=== PATIENT | male | born 1980 | race Caucasian/White ===

== ENCOUNTER 2021-02-10 10:52 | Outpatient (CLI) | payer OTHER, SELFPAY ==
[2021-02-10 11:52] VITALS: BP 131/88; PULSE 111; RESP 18; TEMP 37.4; O2SAT 92; BMI 30.7
[2021-02-10 11:58] VITALS: BP 118/68; PULSE 100; RESP 20; O2SAT 92
[2021-02-10 13:00] VITALS: BP 116/70; PULSE 104; RESP 16; TEMP 38.8; O2SAT 93
== END 2021-02-10 10:53 | disposition home or self-care (01) ==
LOC: OPS 10:56
PROVIDERS: PCP General Practice; Visit Provider Physician Assistant
DX: U07.1 COVID-19 (principal)
CPT/HCPCS: 96365

== ENCOUNTER 2021-02-14 12:31 | Outpatient (CLI) | payer OTHER, SELFPAY ==
[2021-02-14 13:04] LABS: D Dimer 2.89 ug/mIFEU (0-0.59)
== END 2021-02-14 12:32 | disposition home or self-care (01) ==
PROVIDERS: PCP General Practice; Visit Provider Family Medicine
DX: U07.1 COVID-19 (principal)
CPT/HCPCS: 85378

== ENCOUNTER 2021-02-14 16:41 | Emergency (ER) | payer OTHER, SELFPAY ==
[2021-02-14] VITALS (13 sets, daily range): BP systolic 122–135; BP diastolic 77–92; PULSE 86–111; RESP 22–37; TEMP 37.5; O2SAT 93–97; BMI 31.4
--- NOTE | 2021-02-14 17:06 | CTR_ITS ---
PROCEDURE INFORMATION: Exam: CTA Chest With Contrast Exam date and time: 02/14/2021 5:06 PM Age: 40 years old Clinical indication: Cough and fever and shortness of breath; Additional info: Covid, dyspnea TECHNIQUE: Imaging protocol: Computed tomographic angiography of the chest with contrast. 3D rendering (Not supervised by radiologist): MIP and/or 3D reconstructed images were created by the technologist. Total images: 489 Radiation optimization: All CT scans at this facility use at least one of these dose optimization techniques: automated exposure control; mA and/or kV adjustment per patient size (includes targeted exams where dose is matched to clinical indication); or iterative reconstruction. Contrast material: OMNI 350; Contrast volume: 95 ml; Contrast route: INTRAVENOUS (IV); COMPARISON: CR (CHEST, ) 02/14/2021 6:28 PM RADIATION DOSE METRICS: Total DLP (mGy-cm): 1104.89 FINDINGS: Pulmonary arteries: No visible evidence of pulmonary embolism/pulmonary arterial thrombus. Aorta: The thoracic aorta is nonaneurysmal. No visible intimal flap or dissection. Lungs: Bilateral, predominantly peripheral, patches of ground-glass interstitial lung disease opacification consistent with active interstitial pneumonitis. Early crazy paving consolidated alveolar airspace disease involvement. Overall constellation of findings would be consistent with Covid-19 pneumonitis/pneumonia. Pleural spaces: Unremarkable. No pneumothorax. No pleural effusion. Heart: Cardiac size within normal limits. No visible pericardial effusion. No visible coronary artery disease. Lymph nodes: Marginally prominent mediastinal and hilar lymph nodes most likely reactive in nature. Bones/joints: No visible active or acute osseous pathology. Soft tissues: Unremarkable. CT/CT angio chest PE protcl [id number] IMPRESSION: 1. No visible evidence of pulmonary embolism/pulmonary arterial thrombus. 2. Covid-19 pneumonitis/pneumonia. Radiation Dose CTDIVOL = (mGy): DLP = 1104.89 (mGy-cm)
--- NOTE | 2021-02-14 17:08 | W.ED.SOB ---
HPI - SOB/Dyspnea General: Chief Complaint: Shortness of Breath/Dyspnea Stated Complaint: MAYRA HOLLEY SENT OVER...POSS BLOOD CLOT IN LUNG Time Seen by Provider: 02/14/21 17:01 History of Present Illness: HPI Narrative: Patient has been ill for 12 days. Patient was diagnosed with COVID-19 last week and was infused with monoclonal antibodies on Wednesday of this week. Patient reports today he was seen at the [facility] and had blood work done. They called him this afternoon and told him he needed to go to the ER for further evaluation to rule out a pulmonary emboli. Patient is alert oriented reports some shortness of breath but no chest pain. Patient does have some mild tachycardia but is satting 96% on room air. MD elicited complaint: shortness of breath Review of Systems General: Reports: 10 or more systems reviewed and unremarkable except in HPI and below Resp: Reports: dyspnea Physical Exam Const: COMMON NORMALS: no acute distress and patient oriented x3 GENERAL APPEARANCE: cooperative HENMT: COMMON NORMALS: normocephalic and Normal external nose present HEAD & SCALP: normal to inspection and normocephalic NOSE: Normal external nose present MOUTH: Normal oral and palatal mucosa present Eye: GENERAL EYE: appearance normal, both eyes and all related structures Neck/C-Spine: COMMON NORMALS: full ROM Chest: COMMONS NORMALS: normal inspection of the chest Resp: COMMON NORMALS: normal respiratory effort and clear to auscultation bilaterally EFFORT & INSPECTION: Yes able to speak in complete sentences AUSCULTATION: clear to auscultation bilaterally Cardio: COMMON NORMALS: regular rhythm RATE: tachycardic RHYTHM: regular rhythm GI: COMMON NORMALS: non-tender Back/Pelvis: COMMON NORMALS: thoracic and lumbar spine normal to inspection Extremity: COMMON NORMALS: normal to inspection Neuro: COMMON NORMALS: patient oriented x3 and moves all extremities Psych: COMMON NORMALS: mental status grossly normal and cooperative Skin: COMMON NORMALS: no rashes or lesions noted GENERAL SKIN EXAM: no rashes or lesions noted Course Vital Signs: Vital signs: Vital Signs Temperature 99.5 F 02/14/21 17:04 Pulse Rate 86 02/14/21 22:00 Respiratory Rate 26 H 02/14/21 22:00 Blood Pressure 126/92 02/14/21 23:00 Pulse Oximetry 94 02/14/21 23:00 MDM - SOB/Dyspnea MDM Narrative: Medical decision making narrative: Patient comes in today for complaints of fatigue and shortness of breath. Patient is on day 12 of COVID-19 infection. Patient was seen at [facility] and was referred to the ER for further evaluation to rule out PE. Patient has some decreased breath sounds in the lung finley. Oxygen saturation on room air was 9495%. Skin was warm and dry. Differential diagnosis includes COVID-19 pneumonia, pulmonary embolism, pleural effusion. Chest x-ray showed some scattered patches of infiltrates throughout lung finley. D-dimer is 2.6. Remainder of labs suggested some mild dehydration. Patient was given 1 L of IV fluid. 6 mg of dexamethasone for shortness of breath and a dose of famotidine for some complaints of reflux. CTA of the chest indicated no pulmonary embolism. Reviewed exam with patient with suggestions to continue dexamethasone 6 mg daily for the next 4 days and azithromycin 500 daily for 2 days. Patient was recommended to follow-up with primary care in 1 week. Return to the ER for worsening shortness of breath or new concerns. Lab Data: Labs: Lab Results 02/14/21 02/14/21 02/14/21 Range/Units 17:40 17:40 17:40 WBC 7.1 (4.0-10.0) 10^3/ uL RBC 4.18 (4.1-5.3) 10^6/u L Hgb 12.6 (11.7-16.6) g/dL Hct 36.3 L (42.0-52.0) % MCV 86.8 (80-94) fl MCH 30.1 (28.0-34.0) pg MCHC 34.7 (30.0-36.0) g/dL RDW 12.5 (12.1-15.1) % Plt Count 352 (130-400) 10^3/c mm MPV 9.0 (7.4-10.4) fL Neut % (Auto) 72.8 % Lymph % (Auto) 12.3 % [place] % (Auto) 13.9 % Eos % (Auto) 0.3 % Baso % (Auto) 0.1 % Neut # (Auto) 5.17 (1.8-7.7) 10^3/u L Lymph # (Auto) 0.9 (0.8-4.8) 10^3/u L [place] # (Auto) 1.0 H (0.2-0.9) 10^3/u L Eos # (Auto) 0.0 (0.0-0.8) 10^3/u L Baso # (Auto) 0.0 (0.0-0.1) 10^3/u L Nucleated RBC % (a uto) 0 % Nucleated RBCs # 0.0 /100WBC PT 16.40 H (12.1-14.9) SECO NDS INR 1.29 H (0.8-1.2) APTT 42.2 H (23.9-36.7) SECO NDS D-Dimer 2.43 H (0-0.59) ug/mIFE U Sodium 134 L (136-145) mmol/L Potassium 3.4 L (3.5-5.1) mmol/L Chloride 94 L (98-107) mmol/L Carbon Dioxide 26 (22-29) mmol/L Anion Gap 17.4 (5-19) BUN 7 (6-20) mg/dL Creatinine 0.6 L (0.7-1.2) mg/dL GFR Calculation 147.8 H (90-130) mL/min Glucose 106 (65-115) mg/dL Calculated Osmolal ity 276 L (285-295) mOsm/k g Lactic Acid (0.5-2.2) mmol/L Calcium 8.2 L (8.5-10.5) mg/dL Total Bilirubin 0.6 (0.15-1.2) mg/dL AST 38 (0-40) U/L ALT 43 H (0-41) U/L Alkaline Phosphata se 73 (40-130) IU/L Total Protein 6.3 L (6.6-8.7) g/dL Albumin 3.3 L (3.5-5.2) g/dL Globulin 3.0 (1.3-4.6) g/dL 02/14/21 Range/Units 17:40 WBC (4.0-10.0) 10^3/ uL RBC (4.1-5.3) 10^6/u L Hgb (11.7-16.6) g/dL Hct (42.0-52.0) % MCV (80-94) fl MCH (28.0-34.0) pg MCHC (30.0-36.0) g/dL RDW (12.1-15.1) % Plt Count (130-400) 10^3/c mm MPV (7.4-10.4) fL Neut % (Auto) % Lymph % (Auto) % [place] % (Auto) % Eos % (Auto) % Baso % (Auto) % Neut # (Auto) (1.8-7.7) 10^3/u L Lymph # (Auto) (0.8-4.8) 10^3/u L [place] # (Auto) (0.2-0.9) 10^3/u L Eos # (Auto) (0.0-0.8) 10^3/u L Baso # (Auto) (0.0-0.1) 10^3/u L Nucleated RBC % (a uto) % Nucleated RBCs # /100WBC PT (12.1-14.9) SECO NDS INR (0.8-1.2) APTT (23.9-36.7) SECO NDS D-Dimer (0-0.59) ug/mIFE U Sodium (136-145) mmol/L Potassium (3.5-5.1) mmol/L Chloride (98-107) mmol/L Carbon Dioxide (22-29) mmol/L Anion Gap (5-19) BUN (6-20) mg/dL Creatinine (0.7-1.2) mg/dL GFR Calculation (90-130) mL/min Glucose (65-115) mg/dL Calculated Osmolal ity (285-295) mOsm/k g Lactic Acid 1.6 (0.5-2.2) mmol/L Calcium (8.5-10.5) mg/dL Total Bilirubin (0.15-1.2) mg/dL AST (0-40) U/L ALT (0-41) U/L Alkaline Phosphata se (40-130) IU/L Total Protein (6.6-8.7) g/dL Albumin (3.5-5.2) g/dL Globulin (1.3-4.6) g/dL Discharge Plan Discharge Patient Disposition: Home Clinical Impression: Pneumonia due to COVID-19 virus Condition: Stable Prescriptions: New dexamethasone 6 mg tablet 6 mg PO DAILY Qty: 4 RF: 0 azithromycin 500 mg tablet 500 mg PO DAILY 2 Days RF: 0 Discharge Orders: Discharge ED (Routine); Ordered 02/14/21 Ordered By: Donn Mcintosh Referrals: Dann Hernandez MD [Primary Care Provider] - Discharge Diet: Usual diet Discharge Activity: Increase activity as tolerated Patient Instructions: Viral Pneumonia (ED), Opioid Safety Activity Restrictions/Additional Instructions: Drink plenty of fluids. Take medications as directed. Use dexamethasone 6 mg daily for the next 4 days. Use azithromycin 500 mg daily for the next 2 days. COVID-19 is a virus and has limited use for up antibiotics. We have covered you with azithromycin which has anti-inflammatory effect along with antibacterial components. It was written to cover for any secondary bacterial infection that may have occurred along with your Covid 19 infection. Dexamethasone is anti-inflammatory which has been shown to help with respiratory shortness of breath during pneumonia. Use albuterol 2 puffs every 4 hours as needed for shortness of breath. If your shortness of breath becomes worse you may need to be started on oxygen. Have your oxygen status checked frequently with a pulse oximetry monitor. You can pick 1 of these up at [facility] or [facility] if you do not already have one at home. Return to the ER as needed. Follow-up with primary care in 1 week. 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
[2021-02-14] MEDS: sodium chloride 0.9% 1,000 ML 999 ML IV (17:30)
[2021-02-14 17:46] LABS: Basophils % 0.1 %; Eosinophils % 0.3 %; Hematocrit 36.3 % (42.0-52.0); Hemoglobin 12.6 g/dL (11.7-16.6); Lymphocytes # 0.9 10^3/uL (0.8-4.8); Lymphocytes % 12.3 %; Mean Corpuscular HGB Conc 34.7 g/dL (30.0-36.0); Mean Corpuscular Hemoglobin 30.1 pg (28.0-34.0); Mean Corpuscular Volume 86.8 fl (80-94); Monocytes % 13.9 %; Neutrophils # 5.17 10^3/uL (1.8-7.7); Neutrophils % 72.8 %; Nucleated Red Blood Cells % 0 %; Platelet Count 352 10^3/cmm (130-400); Red Blood Count 4.18 10^6/uL (4.1-5.3); Red Cell Distribution Width 12.5 % (12.1-15.1); White Blood Count 7.1 10^3/uL (4.0-10.0)
[2021-02-14 18:04] LABS: Lactic Sepsis W/Reflex 1.6 mmol/L (0.5-2.2)
--- NOTE | 2021-02-14 18:17 | XRR_ITS ---
PROCEDURE INFORMATION: Exam: XR Chest Exam date and time: 02/14/2021 6:17 PM Age: 40 years old Clinical indication: Cough and dyspnea; Patient HX: Covid + TECHNIQUE: Imaging protocol: XR of the chest. Views: 1 view. Total images: 1 COMPARISON: CR XR chest 2V* [id number] 02/14/2021 12:03 PM FINDINGS: Lungs: Bilateral, predominantly peripheral, patches of ground-glass interstitial lung disease opacification consistent with active interstitial pneumonitis. Overall constellation of findings would be consistent with Covid-19 pneumonitis. When compensation is made for change in technique no appreciable significant interval change since 12:06 p.m. same date. Pleural spaces: Unremarkable. No pleural effusion. No pneumothorax. Heart/Mediastinum: Unremarkable. No cardiomegaly. Bones/joints: Unremarkable. XR/XR chest 1V portable [id number] IMPRESSION: No significant interval change cardiopulmonary status.
[2021-02-14 18:18] LABS: Anion Gap 17.4 (5-19); Blood Urea Nitrogen 7 mg/dL (6-20); Carbon Dioxide 26 mmol/L (22-29); Chloride 94 mmol/L (98-107); Potassium 3.4 mmol/L (3.5-5.1); Sodium 134 mmol/L (136-145)
[2021-02-14 18:19] LABS: Alanine Aminotransferase 43 U/L (0-41); Albumin Level 3.3 g/dL (3.5-5.2); Alkaline Phosphatase 73 IU/L (40-130); Aspartate Amino Transferase 38 U/L (0-40); Calcium 8.2 mg/dL (8.5-10.5); Glomerular Filtration Rate 147.8 mL/min (90-130); Glucose 106 mg/dL (65-115); Osmolality Calculated 276 mOsm/kg (285-295); Total Bilirubin 0.6 mg/dL (0.15-1.2); Total Protein 6.3 g/dL (6.6-8.7)
[2021-02-14 18:22] LABS: INR 1.29 (0.8-1.2); Slide Review Slide Review Perform
[2021-02-14 18:25] LABS: D Dimer 2.43 ug/mIFEU (0-0.59)
[2021-02-14 18:36] LABS: Partial Thromboplastin Time 42.2 SECONDS (23.9-36.7)
[2021-02-14] MEDS: famotidine 20 mg/2 mL INJ 40 MG IVP (19:03)
[2021-02-14] MEDS: dexamethasone 10 mg/mL INJ 6 MG IVP (19:04)
[2021-02-14] MEDS: iohexol 350 mg/mL 100 mL Btl IV ×2 (22:34)
== END 2021-02-14 23:39 | disposition home or self-care (01) ==
PROVIDERS: Emergency Provider Nurse Practitioner Family; PCP General Practice
DX: U07.1 COVID-19 (principal); J12.82 Pneumonia due to coronavirus disease 2019
CPT/HCPCS: 71045; 71275; 80053; 83605; 85025; 85378; 85610; 85730; 96361; 96374; 96375; 99284; J1100; J3490; J7030; Q9967

== ENCOUNTER → 2021-11-19 09:59 | Outpatient (BNVA) | payer OTHER, SELFPAY | PROVIDERS: Visit Provider Family Medicine | DX: N52.9 Male erectile dysfunction, unspecified (principal); R39.12 Poor urinary stream; K21.9 Gastro-esophageal reflux disease without esophagitis; Z76.89 Persons encountering health services in other specified circumstances; M79.671 Pain in right foot; G47.00 Insomnia, unspecified | CPT/HCPCS: 73620; 80053; 80061; 81000; 84153; 84443; 85025; 87086 ==

== ENCOUNTER 2021-11-20 13:23 | Outpatient (CLI) | payer OTHER, SELFPAY | END 2021-11-20 13:24 | disposition home or self-care (01) | PROVIDERS: PCP Family Medicine; Visit Provider Family Medicine | DX: K52.9 Noninfective gastroenteritis and colitis, unspecified (principal); K21.9 Gastro-esophageal reflux disease without esophagitis; M79.671 Pain in right foot; N52.9 Male erectile dysfunction, unspecified; R39.12 Poor urinary stream; Z76.89 Persons encountering health services in other specified circumstances | CPT/HCPCS: 87491; 87493; 87506; 87591 ==

== ENCOUNTER → 2022-12-02 11:04 | Outpatient (BNVA) | payer OTHER, SELFPAY | PROVIDERS: PCP Family Medicine; Visit Provider Family Medicine | DX: N52.9 Male erectile dysfunction, unspecified (principal); K21.9 Gastro-esophageal reflux disease without esophagitis; K64.9 Unspecified hemorrhoids | CPT/HCPCS: 80053; 80061; 85025; G0103 ==

== ENCOUNTER → 2023-08-09 14:25 | Outpatient (BNVA) | payer SELFPAY | PROVIDERS: PCP Family Medicine; Visit Provider Family Medicine | DX: Z01.818 Encounter for other preprocedural examination (principal) | CPT/HCPCS: 80053; 85025; 93005 ==